=== PATIENT | male | born 1950 | race African-American/Black ===

== ENCOUNTER 2018-02-11 23:35 | Emergency (ER) | payer BC, MEDICARE ==
[~2018-02-11] VITALS: Ht 177.8 cm; Wt 79.0 kg
[2018-02-12] MEDS ORDERED: IBUPROFEN 600MG TABLET PO ONE (00:15)
[2018-02-12] MEDS ORDERED: ACETAMINOPHEN 500MG TABLET PO ONE (00:15)
[2018-02-12] MEDS ORDERED: MORPHINE SULFATE 10 MG/ML CPJ IM NR (01:00)
[2018-02-12] MEDS ORDERED: ONDANSETRON 4MG ODT PO NR (01:00)
[2018-02-12 02:03] VITALS: BP 112/72
== END 2018-02-12 01:55 | disposition home or self-care (01) ==
LOC: ER 23:35
DX: S82.091A Other fracture of right patella, initial encounter for closed fracture (principal); I10 Essential (primary) hypertension; W01.0XXA Fall on same level from slipping, tripping and stumbling without subsequent striking against object, initial encounter; Y93.89 Activity, other specified; Y92.89 Other specified places as the place of occurrence of the external cause; Y99.8 Other external cause status; Z87.891 Personal history of nicotine dependence; Z98.890 Other specified postprocedural states
CPT/HCPCS: 73562; 96372; 99284; J2270; L1830; Q0162; Z7610